=== PATIENT | female | born 1965 | race Caucasian/White ===

== ENCOUNTER → 2022-01-15 | Outpatient (CLI) | payer OTHER | LOC: EDUNIT# 08:00 → M WHC 08:17 | PROVIDERS: ATTEND Nurse Practitioner Family | DX: Z12.31 Encounter for screening mammogram for malignant neoplasm of breast (principal) ==

== ENCOUNTER 2022-05-26 11:14 | Day surgery (SDC) | payer OTHER ==
[~2022-05-26] VITALS: Ht 170.2 cm; Wt 89.8 kg
[~2022-05-26 11:14] MED LIST: CLAR10CA3 PO; NS 1,000 ML IV ONE
[2022-05-26] MEDS ORDERED: ZINC220CA PO (11:57)
[2022-05-26] MEDS ORDERED: VIT B12 PO (11:57)
[2022-05-26] MEDS ORDERED: LABETALOL 100MG/20ML VIAL As Ordered ONE (12:43)
[2022-05-26] MEDS ORDERED: LIDOCAINE 2% 100MG/5ML SDV (FOR ANES.) As Ordered ONE (12:43)
[2022-05-26] MEDS ORDERED: propofoL 200 MG/20 ML VIAL As Ordered ONE ×2 (12:43→12:48)
[2022-05-26] MEDS ORDERED: hydrALAZINE 20MG/ML 1ML VIAL (J0360 PER 20MG) As Ordered ONE (12:43)
[2022-05-26 13:30] VITALS: BP 138/64
== END 2022-05-26 13:57 | disposition home or self-care (01) ==
LOC: M OPP 11:14
PROVIDERS: ATTEND Surgery
DX: Z12.11 Encounter for screening for malignant neoplasm of colon (principal); Z83.71 Family history of colonic polyps; K57.30 Diverticulosis of large intestine without perforation or abscess without bleeding; Z79.899 Other long term (current) drug therapy; Z80.1 Family history of malignant neoplasm of trachea, bronchus and lung; Z80.8 Family history of malignant neoplasm of other organs or systems; Z80.42 Family history of malignant neoplasm of prostate
CPT/HCPCS: 45378; J0360

== ENCOUNTER → 2022-06-04 | Outpatient (REF) | payer OTHER ==
[~2022-06-04] MED LIST changes: -NS 1,000 ML IV ONE; +VIT B12 PO; +ZINC220CA PO
[2022-06-04 18:15] LABS: CHOLESTEROL RISK RATIO 3.076 (<5); FREE T4 0.98 NG/DL (0.76-1.46); THYROID STIMULATING HORMONE 0.888 uIU/ML (0.358-3.740)
[2022-06-04 19:15] LABS: HEMOGLOBIN A1c 5.4 %
== END ==
LOC: M SFHCCLAY 10:12
PROVIDERS: ATTEND Nurse Practitioner Family
DX: Z13.220 Encounter for screening for lipoid disorders (principal); Z13.29 Encounter for screening for other suspected endocrine disorder; Z13.1 Encounter for screening for diabetes mellitus

== ENCOUNTER → 2023-06-01 | Outpatient (REF) | payer OTHER | LOC: M SFHCCLAY 15:12 | PROVIDERS: ATTEND Physician Assistant | DX: R30.0 Dysuria (principal); N89.8 Other specified noninflammatory disorders of vagina ==